=== PATIENT | male | born 2005 | race Caucasian/White ===

== ENCOUNTER 2024-06-10 17:47 | Emergency (ER) | payer OTHER ==
[~2024-06-10] VITALS: Ht 177.8 cm; Wt 88.2 kg
[2024-06-11] MEDS ORDERED: IBUP-1022 PO (00:32)
[2024-06-11 00:38] VITALS: BP 121/64; TEMP 97.6; O2SAT 100
== END 2024-06-11 00:39 | disposition home or self-care (01) ==
LOC: M ED 17:47
DX: B34.8 Other viral infections of unspecified site (principal); Z79.1 Long term (current) use of non-steroidal anti-inflammatories (NSAID)